=== PATIENT | female | born 1960 | race Native Hawaiian/Other Pacific Islander ===

== ENCOUNTER 2017-04-16 20:55 | Outpatient (CLI) | payer OTHER ==
[2017-04-16] MEDS ORDERED: ASPIRIN ADULT L81 MG PO (21:33)
[2017-04-16] MEDS ORDERED: IBUPROFEN200 MG PO (21:34)
[2017-04-16] MEDS ORDERED: BIDEX PO (21:35)
[2017-04-16] MEDS ORDERED: PRED10TA27 PO (21:36)
[2017-04-16] MEDS ORDERED: HYDR10TA47 PO (21:37)
[2017-04-16] MEDS ORDERED: D31000 UNIT OR (21:38)
[2017-04-16] MEDS ORDERED: B121000 MCG PO (21:39)
[2017-04-16] MEDS ORDERED: POTASSIUM99 MG OR (21:39)
[2017-05-08] MEDS ORDERED: CHANTIX0.5 MG PO (00:08)
[2017-05-08] MEDS ORDERED: LAXATIVE1 TAB PO (00:10)
== END 2017-04-16 21:11 | disposition short-term general hospital (02) ==
LOC: AMB 20:55
DX: R06.02 Shortness of breath (principal); R06.2 Wheezing
CPT/HCPCS: A0425; A0427

== ENCOUNTER 2017-04-16 21:20 | Emergency (ER) | payer OTHER ==
[~2017-04-16] VITALS: Ht 157.5 cm; Wt 45.4 kg
[2017-04-16] MEDS ORDERED: ASPIRIN ADULT L81 MG PO (21:33)
[2017-04-16] MEDS ORDERED: IBUPROFEN200 MG PO (21:34)
[2017-04-16] MEDS ORDERED: BIDEX PO (21:35)
[2017-04-16] MEDS ORDERED: PRED10TA27 PO (21:36)
[2017-04-16] MEDS ORDERED: HYDR10TA47 PO (21:37)
[2017-04-16] MEDS ORDERED: D31000 UNIT OR (21:38)
[2017-04-16] MEDS ORDERED: B121000 MCG PO (21:39)
[2017-04-16] MEDS ORDERED: POTASSIUM99 MG OR (21:39)
[2017-04-16 21:54] LABS: PLATELET COUNT 252 K/uL (152-353)
[2017-04-16 22:02] LABS: POTASSIUM 3.9 mmol/L (3.6-5.2); SODIUM 138 mmol/L (136-145)
[2017-04-16 22:56] VITALS: BP 113/62; TEMP 98.9
[2017-05-08] MEDS ORDERED: CHANTIX0.5 MG PO (00:08)
[2017-05-08] MEDS ORDERED: LAXATIVE1 TAB PO (00:10)
== END 2017-04-16 23:17 | disposition home or self-care (01) ==
LOC: ED 21:20
DX: J44.1 Chronic obstructive pulmonary disease with (acute) exacerbation (principal); F41.9 Anxiety disorder, unspecified; Z72.0 Tobacco use; R00.0 Tachycardia, unspecified
CPT/HCPCS: 80053; 85027; 87081; 87804; 87880; 93005; 94664; 94760; 99284; J2930

== ENCOUNTER 2017-05-07 14:26 | Outpatient (CLI) | payer OTHER ==
[~2017-05-07 14:26] MED LIST: ASPIRIN ADULT L81 MG PO; B121000 MCG PO; BIDEX PO; D31000 UNIT OR; HYDR10TA47 PO; IBUPROFEN200 MG PO; POTASSIUM99 MG OR; PRED10TA27 PO
[2017-05-07] MEDS ORDERED: FLUTMIS14 INH (23:49)
[2017-05-07] MEDS ORDERED: ALBUTEROL0.083 % IN (23:49)
[2017-05-07] MEDS ORDERED: IPRASOL5 IN (23:50)
[2017-05-07] MEDS ORDERED: ALPR0.5T24 PO (23:51)
[2017-05-07] MEDS ORDERED: VITAMIN D31000 UNIT PO (23:51)
[2017-05-07] MEDS ORDERED: VITAMIN B123000 MCG SL (23:52)
[2017-05-07] MEDS ORDERED: HYDR10TA47A PO (23:53)
[2017-05-07] MEDS ORDERED: IBUPROFEN200 MG PO (23:54)
[2017-05-07] MEDS ORDERED: MUCINEX600 MG PO (23:55)
[2017-05-07] MEDS ORDERED: PREDNISONE20 MG PO (23:56)
[2017-05-07] MEDS ORDERED: [UNRECOGNIZED DRUG - OTHER] PO (23:56)
[2017-05-07] MEDS ORDERED: PROVENTIL IN (23:58)
[2017-05-07] MEDS ORDERED: TUMS500 MG PO (23:58)
[2017-05-08] MEDS ORDERED: CHANTIX0.5 MG PO (00:08)
[2017-05-08] MEDS ORDERED: LAXATIVE1 TAB PO (00:10)
== END 2017-05-07 14:39 | disposition short-term general hospital (02) ==
LOC: AMB 14:26
DX: R06.02 Shortness of breath (principal)
CPT/HCPCS: A0425; A0427

== ENCOUNTER 2017-05-07 14:49 | Emergency (ER) | payer OTHER ==
[~2017-05-07] VITALS: Ht 157.5 cm; Wt 45.4 kg
[2017-05-07 14:56] VITALS: TEMP 97.9
[2017-05-07 16:29] LABS: PLATELET COUNT 199 K/uL (152-353)
[2017-05-07 16:35] LABS: POTASSIUM 3.6 mmol/L (3.6-5.2)
[2017-05-07 16:47] LABS: PARTIAL THROMBOPLASTIN TIME 18.5 SECONDS (24.5-33.6)
[2017-05-07 19:41] VITALS: BP 110/62
[2017-05-07] MEDS ORDERED: ALBUTEROL0.083 % IN (23:49)
[2017-05-07] MEDS ORDERED: FLUTMIS14 INH (23:49)
[2017-05-07] MEDS ORDERED: IPRASOL5 IN (23:50)
[2017-05-07] MEDS ORDERED: VITAMIN D31000 UNIT PO (23:51)
[2017-05-07] MEDS ORDERED: ALPR0.5T24 PO (23:51)
[2017-05-07] MEDS ORDERED: VITAMIN B123000 MCG SL (23:52)
[2017-05-07] MEDS ORDERED: HYDR10TA47A PO (23:53)
[2017-05-07] MEDS ORDERED: IBUPROFEN200 MG PO (23:54)
[2017-05-07] MEDS ORDERED: MUCINEX600 MG PO (23:55)
[2017-05-07] MEDS ORDERED: [UNRECOGNIZED DRUG - OTHER] PO (23:56)
[2017-05-07] MEDS ORDERED: PREDNISONE20 MG PO (23:56)
[2017-05-07] MEDS ORDERED: TUMS500 MG PO (23:58)
[2017-05-07] MEDS ORDERED: PROVENTIL IN (23:58)
[2017-05-08] MEDS ORDERED: CHANTIX0.5 MG PO (00:08)
[2017-05-08] MEDS ORDERED: LAXATIVE1 TAB PO (00:10)
== END 2017-05-07 19:42 | disposition other institution (70) ==
LOC: ED 14:49
PROVIDERS: Emergency Medicine
DX: F32.89 Other specified depressive episodes (principal); R45.851 Suicidal ideations; R00.0 Tachycardia, unspecified
CPT/HCPCS: 36415; 80053; 80307; 80320; 80329; 81000; 82550; 84484; 85027; 85610; 85730; 87088; 93005; 99285

== ENCOUNTER 2017-10-22 09:09 | Emergency (ER) | payer OTHER ==
[~2017-10-22] VITALS: Ht 149.9 cm; Wt 40.8 kg
[2017-10-22 09:08] VITALS: TEMP 98.2
[~2017-10-22 09:09] MED LIST changes: -AMIT25TA22 PO; -BUDE1AER5 INH; -BUSP15TAB2 PO; -BUSP5TAB2 PO; -CLON0.5T36 PO; -ESCI10TA PO; -MIRTAZAPINE7.5 MG PO; -MONT10TA PO; -SEROQUEL25 MG PO; -XANAX XR1 MG PO
[2017-10-22 09:41] LABS: PLATELET COUNT 189 K/uL (152-353)
[2017-10-22 09:48] LABS: POTASSIUM 3.4 mmol/L (3.6-5.2)
[2017-10-22 14:30] VITALS: BP 96/50
[2017-10-22] MEDS ORDERED: SEROQUEL25 MG PO (15:38)
[2017-10-22] MEDS ORDERED: MONT10TA PO (15:38)
[2017-10-22] MEDS ORDERED: MIRTAZAPINE7.5 MG PO (15:39)
[2017-10-22] MEDS ORDERED: AMIT25TA22 PO (15:39)
[2017-10-22] MEDS ORDERED: BUDE1AER5 INH (15:40)
[2017-10-22] MEDS ORDERED: BUSP15TAB2 PO (15:40)
[2017-10-22] MEDS ORDERED: HYDR10TA47 PO (15:42)
[2017-10-22] MEDS ORDERED: MUCINEX600 MG PO (15:42)
[2017-10-22] MEDS ORDERED: XANAX XR1 MG PO (15:43)
[2017-10-29] MEDS ORDERED: SEROQUEL25 MG PO (10:36)
[2017-10-29] MEDS ORDERED: HYDR10TA47 PO (10:36)
[2017-10-29] MEDS ORDERED: MONT10TA PO (10:36)
[2017-10-29] MEDS ORDERED: ALBUTEROL0.083 % IN (10:36)
[2017-10-29] MEDS ORDERED: PREDNISONE20 MG PO (10:36)
[2017-10-29] MEDS ORDERED: ESCI10TA PO (10:36)
[2017-10-29] MEDS ORDERED: MUCINEX600 MG PO (10:36)
[2017-10-29] MEDS ORDERED: LAXATIVE1 TAB PO (10:36)
[2017-10-29] MEDS ORDERED: BUSP5TAB2 PO (10:36)
[2017-10-29] MEDS ORDERED: IPRASOL5 IN (10:36)
[2017-10-29] MEDS ORDERED: PROVENTIL IN (10:36)
[2017-10-29] MEDS ORDERED: BUDE1AER5 INH (10:36)
[2017-10-29] MEDS ORDERED: MIRTAZAPINE7.5 MG PO (10:36)
[2017-10-29] MEDS ORDERED: CLON0.5T36 PO (10:36)
== END 2017-10-22 14:50 | disposition other institution (70) ==
LOC: ED 09:09
DX: F11.10 Opioid abuse, uncomplicated (principal); F13.10 Sedative, hypnotic or anxiolytic abuse, uncomplicated; F91.9 Conduct disorder, unspecified; W19.XXXA Unspecified fall, initial encounter
CPT/HCPCS: 36415; 80053; 80307; 81000; 82550; 82553; 84484; 85027; 93005; 94664; 96374; 96375; 99285; J2310; J2930; J3490

== ENCOUNTER → 2017-10-22 | Outpatient (CLI) | payer OTHER ==
[~2017-10-22] MED LIST changes: +ALBUTEROL0.083 % IN; +ALPR0.5T24 PO; +AMIT25TA22 PO; +BUDE1AER5 INH; +BUSP15TAB2 PO; +BUSP5TAB2 PO; +CHANTIX0.5 MG PO; +CLON0.5T36 PO; +ESCI10TA PO; +FLUTMIS14 INH; +HYDR10TA47A PO; +IPRASOL5 IN; +LAXATIVE1 TAB PO; +MIRTAZAPINE7.5 MG PO; +MONT10TA PO; +MUCINEX600 MG PO; +PREDNISONE20 MG PO; +PROVENTIL IN; +SEROQUEL25 MG PO; +TUMS500 MG PO; +VITAMIN B123000 MCG SL; +VITAMIN D31000 UNIT PO; +XANAX XR1 MG PO; +[UNRECOGNIZED DRUG - OTHER] PO
== END | disposition short-term general hospital (02) ==
LOC: AMB 08:51
DX: R53.81 Other malaise (principal); W18.30XA Fall on same level, unspecified, initial encounter; Y92.018 Other place in single-family (private) house as the place of occurrence of the external cause
CPT/HCPCS: A0425; A0427